=== PATIENT | female | born 1950 | race Caucasian/White ===

== ENCOUNTER 2016-10-09 11:23 | Emergency (ER) | payer OTHER ==
[2016-10-09 12:09] LABS: HEMOGLOBIN 13.3 gm/dl (12.3-15.3); RED BLOOD COUNT 4.56 M/UL (4.00-5.10); WHITE BLOOD COUNT 7.8 K/UL (4.5-11.0)
[2016-10-09 12:30] LABS: BUN/CREATININE RATIO 14 (0-10)
== END 2016-10-09 17:23 | disposition home or self-care (01) ==
LOC: ER1 11:23
PROVIDERS: Emergency Medicine
DX: I20.9 Angina pectoris, unspecified (principal); Z79.899 Other long term (current) drug therapy
CPT/HCPCS: 36415; 71010; 80053; 82550; 82553; 83874; 84484; 85025; 93005; 99285

== ENCOUNTER 2016-12-02 19:34 | Emergency (ER) | payer OTHER | END 2016-12-02 20:55 | disposition home or self-care (01) | LOC: ER1 19:34 | DX: L03.114 Cellulitis of left upper limb (principal); E07.9 Disorder of thyroid, unspecified; Z79.899 Other long term (current) drug therapy | CPT/HCPCS: 99283 ==

== ENCOUNTER 2016-12-03 11:03 | Emergency (ER) | payer OTHER ==
[2016-12-03 11:56] LABS: HEMOGLOBIN 13.4 gm/dl (12.3-15.3); RED BLOOD COUNT 4.66 M/UL (4.00-5.10); WHITE BLOOD COUNT 9.3 K/UL (4.5-11.0)
== END 2016-12-03 12:40 | disposition home or self-care (01) ==
LOC: ER1 11:03
PROVIDERS: Physician Assistant Medical
DX: L02.414 Cutaneous abscess of left upper limb (principal); L03.114 Cellulitis of left upper limb; E05.00 Thyrotoxicosis with diffuse goiter without thyrotoxic crisis or storm; Z79.899 Other long term (current) drug therapy
CPT/HCPCS: 36415; 80053; 85025; 87070; 87205; 99283

== ENCOUNTER 2016-12-09 19:30 | Emergency (ER) | payer OTHER | END 2016-12-09 21:45 | disposition home or self-care (01) | LOC: ER1 19:30 | DX: L02.414 Cutaneous abscess of left upper limb (principal) | CPT/HCPCS: 10060; 87070; 87205; 99283 ==

== ENCOUNTER → 2020-07-29 | Outpatient (CLI) | payer OTHER ==
[~2020-07-29] MED LIST: ASPIRIN EC81 MG PO; ATORVASTATIN CA20 MG PO; EUTHYROX125 MCG PO; GABAPENTIN300 MG PO; METOPROLOL SUCC25 MG PO; NITROGLYCERIN0.4 MG SL; PROTONIX 40 MG40 M1 PO
== END ==
LOC: KOH-I 11:28
DX: E05.00 Thyrotoxicosis with diffuse goiter without thyrotoxic crisis or storm (principal)
CPT/HCPCS: 70480

== ENCOUNTER 2020-10-16 11:08 | Observation (INO) | payer OTHER ==
[~2020-10-16] VITALS: Ht 170.2 cm; Wt 99.3 kg
[~2020-10-16 11:08] MED LIST changes: -ASPIRIN EC81 MG PO; -ATORVASTATIN CA20 MG PO; -EUTHYROX125 MCG PO; -METOPROLOL SUCC25 MG PO; -NITROGLYCERIN0.4 MG SL; -PROTONIX 40 MG40 M1 PO
[2020-10-16 11:48] LABS: HEMOGLOBIN 13.7 gm/dl (12.3-15.3); RED BLOOD COUNT 4.71 M/UL (4.00-5.10); WHITE BLOOD COUNT 8.7 K/UL (4.5-11.0)
[2020-10-16 12:35] LABS: BUN/CREATININE RATIO 21 (0-10)
[2020-10-16] MEDS ORDERED: EUTHYROX125 MCG PO (19:41)
[2020-10-16] MEDS ORDERED: METOPROLOL SUCC25 MG PO (19:41)
[2020-10-17 02:37] LABS: HEMOGLOBIN 13.2 gm/dl (12.3-15.3); RED BLOOD COUNT 4.53 M/UL (4.00-5.10); WHITE BLOOD COUNT 9.9 K/UL (4.5-11.0)
[2020-10-17 03:10] LABS: BUN/CREATININE RATIO 23 (0-10)
[2020-10-17] MEDS ORDERED: ATORVASTATIN CA20 MG PO (11:50)
[2020-10-17] MEDS ORDERED: NITROGLYCERIN0.4 MG SL (11:50)
[2020-10-17] MEDS ORDERED: METOPROLOL SUCC25 MG PO (11:50)
[2020-10-17] MEDS ORDERED: ASPIRIN EC81 MG PO (11:50)
[2020-10-17] MEDS ORDERED: PROTONIX 40 MG40 M1 PO (11:50)
== END 2020-10-17 14:15 | disposition home or self-care (01) ==
LOC: ER1 11:08 → CDU 16:48 → MED SURG 4 18:14
PROVIDERS: Emergency Medicine; ADMIT Internal Medicine
DX: R07.2 Precordial pain (principal); I10 Essential (primary) hypertension; E78.5 Hyperlipidemia, unspecified; E05.00 Thyrotoxicosis with diffuse goiter without thyrotoxic crisis or storm; E03.9 Hypothyroidism, unspecified; E66.9 Obesity, unspecified; Z68.34 Body mass index [BMI] 34.0-34.9, adult; Z79.899 Other long term (current) drug therapy; Z90.710 Acquired absence of both cervix and uterus; Z88.4 Allergy status to anesthetic agent; Z20.822 Contact with and (suspected) exposure to COVID-19
CPT/HCPCS: ECHO; 0240U; 36415; 71045; 80053; 82550; 82553; 83036; 83874; 84439; 84443; 84484; 85025; 85610; 85730; 93005; 93306; 96372; 99285; G0378; J1650

== ENCOUNTER → 2022-04-12 | Outpatient (CLI) | payer OTHER ==
[~2022-04-12] MED LIST changes: +ASPIRIN EC81 MG PO; +ATORVASTATIN CA20 MG PO; +EUTHYROX125 MCG PO; +METOPROLOL SUCC25 MG PO; +NITROGLYCERIN0.4 MG SL; +PROTONIX 40 MG40 M1 PO
== END ==
LOC: EXRD 07:55
DX: R79.89 Other specified abnormal findings of blood chemistry (principal); K76.0 Fatty (change of) liver, not elsewhere classified; K80.20 Calculus of gallbladder without cholecystitis without obstruction
CPT/HCPCS: 76700